=== PATIENT | female | born 1985 | race Caucasian/White ===

== ENCOUNTER → 2016-06-12 | Outpatient (REF) | payer OTHER | LOC: M SFHCCLAY 08:27 | PROVIDERS: ATTEND Family Medicine | DX: Z02.0 Encounter for examination for admission to educational institution (principal) ==

== ENCOUNTER → 2016-07-10 | Outpatient (REF) | payer OTHER ==
[2016-07-10 19:20] LABS: MEAN CORPUSCULAR HGB CONC 33.4 g/dl (32.0-36.5); MEAN CORPUSCULAR VOLUME 89.9 fl (80.0-96.0); RED CELL DISTRIBUTION WIDTH 11.9 % (11.5-14.5)
[2016-07-11 06:39] LABS: WHITE BLOOD COUNT 9.2 K/mm3 (4.0-10.0)
[2016-07-11 14:12] LABS: CONTROL LINE INT CTR LINE PRESENT; HIV SCRN NEGATIVE (NEGATIVE); HIV SCRN1 NEGATIVE (NEGATIVE)
== END | disposition home or self-care (01) ==
LOC: M LAB REF 16:59
PROVIDERS: ATTEND Obstetrics & Gynecology
DX: O36.80X0 Pregnancy with inconclusive fetal viability, not applicable or unspecified (principal); Z3A.00 Weeks of gestation of pregnancy not specified

== ENCOUNTER → 2016-07-21 | Outpatient (REF) | payer OTHER ==
[2016-07-21 15:54] LABS: FREE T4 1.02 NG/DL (0.76-1.46)
[2016-07-21 16:06] LABS: FOLATE 17.1 NG/ML (>5.4)
== END ==
LOC: M LAB REF 15:01
PROVIDERS: ATTEND Obstetrics & Gynecology
DX: O36.80X0 Pregnancy with inconclusive fetal viability, not applicable or unspecified (principal); Z3A.00 Weeks of gestation of pregnancy not specified

== ENCOUNTER → 2016-08-18 | Outpatient (REF) | payer OTHER | LOC: M LAB REF 16:17 | PROVIDERS: ATTEND Obstetrics & Gynecology | DX: Z34.81 Encounter for supervision of other normal pregnancy, first trimester (principal) ==

== ENCOUNTER → 2016-10-04 | Outpatient (CLI) | payer BC, OTHER ==
--- NOTE | 2016-10-05 04:15 | REP ---
Clinical: Anatomical evaluation. Comparison: None . Findings: Examination demonstrates a single live intrauterine in breech presentation. motion is identified by technologist. Placenta is noted anteriorly and grade one without evidence for placenta previa or abruption. Amniotic fluid volume is normal. Cervix measures 5.4 cm in length and appears closed. No evidence for nuchal cord. Gestational age by LMP 19 weeks 4 days with YELENA 02/24/2017 . Gestational age by current measurements 19 weeks 3 day with YELENA 02/25/2017 . FHR equals 147 beats per minute. BPD 4.6 cm 19 weeks 5 days HC 16.7 cm 19 weeks 2 days AC 14.8 cm 20 weeks 0 days FL 3.1 cm 19 weeks 5 days HL 2.9 cm 19 weeks 3 days HC/AC ratio 1.13 Estimated weight 315 grams ( 54th percentile). Anatomical assessment demonstrates normal structures including cranium, choroid plexus, cavum, cerebellum/posterior fossa, lungs, diaphragm, stomach, cord insertion/three-vessel cord, kidneys/bladder, spine, and extremities. Limited evaluation of the facial features and heart/ventricular outflow tracts noted. Impression: Single live intrauterine in breech presentation demonstrating appropriate interval growth. Anatomical limitations as described above warrant reevaluation and follow-up. Signed by Srinivas Avila MD 10/05/2016 04:07 A
== END ==
LOC: M RAD 10:01
PROVIDERS: ATTEND Advanced Practice Midwife
DX: Z34.82 Encounter for supervision of other normal pregnancy, second trimester (principal)

== ENCOUNTER → 2016-10-27 | Outpatient (CLI) | payer BC, OTHER ==
--- NOTE | 2016-10-27 12:34 | REP ---
REASON: Followup anatomy. Multiple sonographic images of the gravid uterus show a single living intrauterine gestation in the jeovany breech presentation. Doppler interrogation of the heart shows the heart rate of 147 beats per minute. The placenta is anterior and not low lying. The subjective amniotic fluid volume is within normal limits. The cervix measures 4 cm in length and is closed. Evaluation of the maternal adnexal spaces showed no abnormalities. BPD 5.4 cm = 22 weeks 4 days HC 20.8 cm = 22 weeks 6 days AC 18.2 cm = 23 weeks 0 days FL 3.9 cm = 22 weeks 3 days The estimated weight is 531 grams, which is at the 41st percentile for a 22-weeks 6-day gestational age. Four chamber heart and ventricular outflow tracts were seen today and appear unremarkable. The facial features were also seen to be within normal limits. Once again, however, the spine was not seen optimally. IMPRESSION: Improved anatomical screening, as described above, but with persistent limited visualization of the spine. Followup is recommended. The estimated gestational age of the fetus is 22 weeks 5 days via composite criteria with an estimated date of delivery of 02/25/2017 by today's exam. Signed by Jose G Schafer DO 10/27/2016 03:22 P
== END ==
LOC: M RAD 09:39
PROVIDERS: ATTEND Obstetrics & Gynecology
DX: Z34.82 Encounter for supervision of other normal pregnancy, second trimester (principal)

== ENCOUNTER → 2016-11-30 | Outpatient (CLI) | payer BC, OTHER ==
[~2016-11-30] MED LIST: ACET50TA PO; IBUP-1114 PO; PANT40TA2 PO; PRE-TAB3 PO
[2016-11-30 13:42] LABS: MEAN CORPUSCULAR HEMOGLOBIN 32.7 pg (27.0-33.0); MEAN CORPUSCULAR HGB CONC 34.5 g/dl (32.0-36.5); RED CELL DISTRIBUTION WIDTH 12.4 % (11.5-14.5); WHITE BLOOD COUNT 6.7 K/mm3 (4.0-10.0)
== END ==
LOC: M LAB 11:24
PROVIDERS: ATTEND Obstetrics & Gynecology
DX: Z36 Encounter for antenatal screening of mother (principal); Z3A.00 Weeks of gestation of pregnancy not specified
CPT/HCPCS: 36415; 82950; 85027; 86850; 86901; J2790

== ENCOUNTER → 2017-01-22 | Outpatient (REF) | payer BC, OTHER | LOC: M LAB REF 17:51 | PROVIDERS: ATTEND Advanced Practice Midwife | DX: Z34.83 Encounter for supervision of other normal pregnancy, third trimester (principal) ==

== ENCOUNTER 2017-03-01 06:11 | Inpatient (IN) | payer BC, OTHER ==
[~2017-03-01] VITALS: Ht 154.9 cm; Wt 67.0 kg
[2017-03-01] MEDS ORDERED: PANT40TA2 PO (06:50)
[2017-03-01] MEDS ORDERED: PRE-TAB3 PO (06:50)
[2017-03-01 07:09] LABS: BASO % 0.4 % (0.0-1.0); EOS % 0.3 % (0.0-3.0); IMMATURE GRANULOCYTE % 0.4 % (0-0); LYMPH # 1.6 10^3/uL (1.5-4.5); LYMPH % 16.1 % (24.0-44.0); MEAN CORPUSCULAR HEMOGLOBIN 32.8 pg (27.0-33.0); MEAN CORPUSCULAR HGB CONC 34.9 g/dl (32.0-36.5); MEAN CORPUSCULAR VOLUME 93.8 fl (80.0-96.0); MONO # 0.9 10^3/uL (0.0-0.8); NEUTROPHILS # 7.5 10^3/uL (1.8-7.7); NEUTROPHILS % 73.8 % (36.0-66.0); PLATELET COUNT, AUTOMATED 199 10^3/uL (150-450); RED CELL DISTRIBUTION WIDTH 12.5 % (11.5-14.5); WHITE BLOOD COUNT 10.2 10^3/uL (4.0-10.0)
[2017-03-01 07:24] VITALS: BP 119/77
[2017-03-01] MEDS ORDERED: LACTATED RINGER'S 1000 ML IV STA (07:35)
[2017-03-01] MEDS ORDERED: LR 1,000 ML IV SCH (07:35)
[2017-03-01] MEDS ORDERED: OXYTOCIN DRIP 30 UNITS in APPROPRIATE DILUENT 1 EA IV SCH ×2 (07:45→10:38)
--- NOTE | 2017-03-01 08:21 | HPEPDOC ---
Obstetrical History & Physical General Date of Admission Mar 01, 2017 at 06:11 Primary Care Physician: JAYDON CALIXTO CNM History of Present Illness Patient is a 31 year old female who is a at 40.4 weeks gestation based off of her LMP and consistent with her 1st trimeter ultrasound. She initiated care in her first trimester. Her has been uncomplicated. She has a history of gastric bypass in 2014, which has not caused any complications during this . She present to L&D for an induction of labor for post dates. She reports contractions and active movement. Denies leaking of fluid or vaginal bleeding. Chief Complaint: Induction of labor, Other Information Provided By: Patient Age: 31 : 3 Term: 2 Pre-term: 0 Abortions: 0 Livin Care Care: Good Care Dating Final EDC: Feb 25, 2017 Final EDC by: LMP EGA at Admission: 40.4 Antepartum Course Height (inches): 61 Pre- weight (lbs.): 124 Admission Weight (lbs.): 150 Change in Weight (lbs.): 26 Past Medical History Past Obstetrical History #1: Past Obstetrical History: Multigravida Gestation: 40 Type of Delivery: Spontaneous Vaginal Del. ( May 2006) Sex of : Female (weight 7 lbs 5 oz.) Complications: Yes (GHTN) Past Obstetrical History #2: Gestation: 40 Type of Delivery: Spontaneous Vaginal Del. (June 2008) Sex of : Female (weighting 8 lbs 15 oz,.) Complications: Yes ( with congenital adrenal hyperplasia) [employer] History: No pertinent history Past Medical History Medical History History of varicella, mononucleosis, pneumonia- all a child. Surgical History: Tonsilectomy, Other (gastric bypass 2014) Family History Significant Family History: Cancer, Diabetes, Heart disease, Hypertension Social History Marital Status: Family situation: Spouse/partner home Psychosocial History: No pertinent psych hx * Smoker: former Smoker Alcohol: Denies Drugs: denies Abuse Violence Screening Have you been hit/kicked/slapp: No Have you been sexually assault: No Imunizations Tdap status: declined Allergies Coded Allergies: Codeine (Verified Allergy, Unknown, HYPERVENTILATE, 03/01/17) No Known Drug Allergy (Verified Allergy, Unknown, 09/02/12) Medications Scheduled Pantoprazole Sodium (Pantoprazole Sodium) 40 Mg Tab, 40 MG PO DAILY Miscellaneous Medications (Pre-Amanda Formula) 1 Tab Tab, 1 TAB PO Physical Examination Physical Examination GENERAL: Alert and oriented times three. BREAST: . ABDOMEN: Gravid and non-tender to touch. FETUS: Is vertex (VTX) by sterile vaginal examination (SVE), fetus is vertex ( VTX) by Doug. HEART RATE: Regular rate and rhythm. LUNGS: Clear to auscultation (CTA). EXTREMITIES: No edema. No clonus. Vital Signs/I&O Vital Signs Date Time Temp Pulse Resp B/P (MAP) Pulse Ox O2 Delivery O2 Flow Rate FiO2 03/01/17 07:24 98.0 60 16 119/77 (91) Laboratory Data 24H LABS Laboratory Tests 2 03/01/17 06:23: Serology Scanned Report Hepatitis B Testing 03/01/17 06:49: Immature Granulocyte % (Auto) 0.4H, White Blood Count 10.2H, Red Blood Count 3.54L, Hemoglobin 11.6L, Hematocrit 33.2L, Mean Corpuscular Volume 93.8, Mean Corpuscular Hemoglobin 32.8, Mean Corpuscular Hemoglobin Concent 34.9, Red Cell Distribution Width 12.5, Platelet Count 199, Neutrophils (%) (Auto) 73.8H, Lymphocytes (%) (Auto) 16.1L, Monocytes (%) (Auto) 9.0H, Eosinophils (%) (Auto) 0.3, Basophils (%) (Auto) 0.4, Neutrophils # (Auto) 7.5, Lymphocytes # (Auto) 1.6, Monocytes # (Auto) 0.9H, Eosinophils # (Auto) 0.0, Basophils # (Auto) 0.0, Immature Granulocyte # (Auto) 0.0, Nucleated Red Blood Cells % (auto) 0.0 CBC/BMP Laboratory Tests 03/01/17 06:49 Red Blood Count 3.54 L, Mean Corpuscular Volume 93.8, Mean Corpuscular Hemoglobin 32.8, Mean Corpuscular Hemoglobin Concent 34.9, Red Cell Distribution Width 12.5, Neutrophils (%) (Auto) 73.8 H, Lymphocytes (%) (Auto) 16.1 L, Monocytes (%) (Auto) 9.0 H, Eosinophils (%) (Auto) 0.3, Basophils (%) ( Auto) 0.4, Neutrophils # (Auto) 7.5, Lymphocytes # (Auto) 1.6, Monocytes # (Auto ) 0.9 H, Eosinophils # (Auto) 0.0, Basophils # (Auto) 0.0 Urine Culture: No Growth Pertinent Laboratoy Data Blood Type: A- RBC Antibody Screen: Negative HIV: Negative Hepatitis B: Negative Hepatitis C: Negative Rapid Plasma Reagin: Nonreactive Rubella: Immune Chlamydia/Gonorrhea: Negative Group B Streptococcus: Negative Quad Screen Test: Declined Cystic Fibrosis: Declined Glucose Tolerance Test: 155 Vaginal Examination Dilation: 4 cm Effacement: 75% Station: -1 Cervical Consistency: Soft Cervical Position: Anterior Presentation: Cephalic presentation Position: Vertex (occiput) Assessment Heart Rate (FHR): 130 Variability: Moderate Accelerations: Positive Decelerations: Early Tocometer Contractions: Yes Frequency: regular, other (every 5 minutes) Multi-drug resistant Organism: No history of MDRO Assessment/Plan Assessment IUP at 40.4 weeks gestation Category I FHR tracing Elective induction of labor post term GBS negative Plan Admit to L&D saline lock and labs per protocol OOB ad james clear liquid diet Pitocin per order. Plan of care discussed with patient and . Reviewed risks, benefits, and alternatives with patient. Patient and agree to continue with plan of care. Anticipate cervical change and . JAYDON CALIXTO CNM Mar 01, 2017 08:21
[2017-03-01] MEDS ORDERED: FENTANYL 2MCG/ML ROPIVACAINE 0.2% IN 0.9% NACL 200ML IVBAG As Ordered ONE (09:47)
[2017-03-01] MEDS ORDERED: DIBUCAINE 1% OINTMENT 30GM TOP PRN (10:45)
[2017-03-01] MEDS ORDERED: RHOGAM 300 MCG (1500 IU) INJ (J2790) IM SCH (10:45)
[2017-03-01] MEDS ORDERED: METHYLERGONOVINE MALEATE 0.2 MG TAB PO PRN (10:45)
[2017-03-01] MEDS ORDERED: DOCUSATE SODIUM 100 MG CAP PO PRN (10:45)
[2017-03-01] MEDS ORDERED: ANUSOL HC CREAM 30GM TOP PRN (10:45)
[2017-03-01] MEDS ORDERED: MEASLES,MUMPS,RUBELLA VACCINE INJ (MMR-II) (90707) SC SCH (10:45)
[2017-03-01] MEDS ORDERED: IBUPROFEN 800 MG TAB PO PRN (10:45)
--- NOTE | 2017-03-01 10:58 | DNPDOC ---
[facility] Delivery Note Delivery Note DATE OF DELIVERY: 03/01/17 at 1013 PROCEDURE: Spontaneous vaginal delivery. UNLEAVENED DOUGH MIXER: Jaydon Banerjee CNM, RA ANESTHESIA: epidural. ESTIMATED BLOOD LOSS: 150 mL. FINDINGS: 7 pounds 10 ounces, 3460 grams, male , Score 9/9, meconium fluid and a precipitous delivery. DELIVERY SUMMARY: Patient is a 31 year-old female who is now a at 40.4 weeks gestation who presented to L&D for an induction of labor for postdates. She received Pitocin for induction and an epidural for pain management. She progressed to fully dilated 10:08 and pushed to vaginal delivery of a living male in the OA position with restitution to ALEXUS at 10:13. The shoulders delivered spontaneous and the corpus immediately followed. The baby was placed on the maternal abdomen active and crying. The cord was clamped after 1 minute times 2 and cut by provider. A 3 vessel cord was noted. The placenta delivered spontaneously and intact. Uterine hemostasis was achieved by rapid infusion of IV pitocin and fundal massage. The perineum and vagina were inspected and found to have a first degree perineal laceration that was repaired with a 3.[address]-1. Dr. Baca in room briefly after delivery to observe baby. Mom plans to breastfeed. She is naming the baby "Barry." Both mom and baby are in stable condition. JAYDON BANERJEE CNM Mar 01, 2017 10:58
[2017-03-01 13:57] VITALS: BP 125/77
[2017-03-01 18:00] VITALS: BP 136/69
[2017-03-01] MEDS: ACETAMINOPHEN 500 MG TAB PO PRN (22:37)
[2017-03-02 06:00] VITALS: BP 123/64
[2017-03-02] MEDS: ACETAMINOPHEN 500 MG TAB PO PRN (06:18)
[2017-03-02] MEDS: PRENATAL VITAMINS CHEWABLE TABLET PO SCH (07:32)
[2017-03-02 18:00] VITALS: BP 125/76
[2017-03-03 06:38] VITALS: BP 120/68
[2017-03-03] MEDS: PRENATAL VITAMINS CHEWABLE TABLET PO SCH (08:22)
[2017-03-03] MEDS ORDERED: INFLUENZA QUADRIVALENT PF VACCINE 0.5ML SYRINGE (90686) IM ONE (09:00)
[2017-03-03] MEDS ORDERED: ADACEL/BOOSTRIX VACCINE (DIPHTH/PERTUSS/ACELL/TETANUS)0.5ML SYR (90715) IM ONE (09:00)
[2017-03-03] MEDS ORDERED: IBUP-1114 PO (11:28)
[2017-03-03] MEDS ORDERED: ACET50TA PO (11:28)
== END 2017-03-03 11:40 | disposition home or self-care (01) | DRG 560 ==
LOC: M LDI 06:11 → M OBS 13:10
PROVIDERS: ADMIT Obstetrics & Gynecology; ATTEND Obstetrics & Gynecology
PROC: 10E0XZZ Delivery of Products of Conception, External Approach (ICD-10-PCS; principal; 2017-03-01)
PROC: 0HQ9XZZ Repair Perineum Skin, External Approach (ICD-10-PCS; 2017-03-01)
PROC: 3E033VJ Introduction of Other Hormone into Peripheral Vein, Percutaneous Approach (ICD-10-PCS; 2017-03-01)
DX: O48.0 Post-term pregnancy (principal); O70.0 First degree perineal laceration during delivery; Z37.0 Single live birth; Z3A.40 40 weeks gestation of pregnancy; Z88.5 Allergy status to narcotic agent

== ENCOUNTER → 2020-05-16 | Outpatient (REF) | payer OTHER ==
[~2020-05-16] MED LIST changes: -ACET50TA PO; +MAPA500T2 PO; -PANT40TA2 PO; +PANT40TA29 PO
== END ==
LOC: M WUC 10:06
PROVIDERS: ATTEND Physician Assistant
DX: R21 Rash and other nonspecific skin eruption (principal); L03.114 Cellulitis of left upper limb

== ENCOUNTER → 2021-06-27 | Outpatient (REF) | payer OTHER | LOC: M LAB REF 15:36 | PROVIDERS: ATTEND Physician Assistant | DX: M54.50 Low back pain, unspecified (principal) ==

== ENCOUNTER → 2022-04-30 | Outpatient (REF) ==
[2022-04-30 13:43] LABS: RSV AMPLIFICATION NEGATIVE (NEGATIVE)
== END ==
LOC: M LABSMTC 11:51
PROVIDERS: ATTEND Family Medicine
DX: Z20.822 Contact with and (suspected) exposure to COVID-19 (principal)

== ENCOUNTER → 2022-08-01 | Outpatient (REF) | LOC: M LABSMTC 11:52 | PROVIDERS: ATTEND Family Medicine | DX: Z11.52 Encounter for screening for COVID-19 (principal) ==

== ENCOUNTER → 2022-09-15 | Outpatient (REF) | payer OTHER | LOC: M PLALAB 15:14 | PROVIDERS: ATTEND Nurse Practitioner Family | DX: Z12.4 Encounter for screening for malignant neoplasm of cervix (principal) | CPT/HCPCS: 87624; G0123 ==

== ENCOUNTER → 2023-06-15 | Outpatient (REF) | LOC: M EMP 09:33 | PROVIDERS: ATTEND Family Medicine | DX: Z11.52 Encounter for screening for COVID-19 (principal) ==

== ENCOUNTER 2024-04-26 01:23 | Emergency (ER) | payer BC, OTHER ==
[~2024-04-26] VITALS: Ht 154.9 cm; Wt 58.6 kg
[2024-04-26 02:33] LABS: BASO % 0.4 % (0.0-1.0); EOS # 0.1 10^3/uL (0.0-0.5); EOS % 1.8 % (0.0-3.0); HEMATOCRIT 35.6 % (36.0-47.0); HEMOGLOBIN 11.8 g/dl (12.0-15.5); LYMPH # 0.9 10^3/uL (1.5-5.0); LYMPH % 16.9 % (24.0-44.0); MEAN CORPUSCULAR HEMOGLOBIN 29.2 pg (27.0-33.0); MEAN CORPUSCULAR HGB CONC 33.1 g/dl (32.0-36.5); MEAN CORPUSCULAR VOLUME 88.1 fl (80.0-96.0); MONO # 0.6 10^3/uL (0.0-0.8); MONO % 12.2 % (2.0-8.0); NEUTROPHILS # 3.5 10^3/uL (1.5-8.5); NEUTROPHILS % 68.5 % (36.0-66.0); PLATELET COUNT, AUTOMATED 300 10^3/uL (150-450); RED BLOOD COUNT 4.04 10^6/uL (4.00-5.40); WHITE BLOOD COUNT 5.1 10^3/uL (4.0-10.0)
[2024-04-26] MEDS: ONDANSETRON 4MG 2ML VIAL IV ONE (02:40)
[2024-04-26 02:57] LABS: LIPASE 29 U/L (12-53)
[2024-04-26 02:59] LABS: ALBUMIN 3.5 G/DL (3.2-5.2); ALKALINE PHOSPHATASE 119 U/L (35-104); ALT/SGPT 379 U/L (7.0-40); AST/SGOT 168 U/L (<34); BILIRUBIN,TOTAL 0.6 MG/DL (0.3-1.2); BLOOD UREA NITROGEN 13 MG/DL (9-23); CALCIUM LEVEL 9.1 MG/DL (8.5-10.1); CARBON DIOXIDE LEVEL 22 MMOL/L (20-31); CHLORIDE LEVEL 113 MMOL/L (98-107); CREATININE FOR GFR 0.63 MG/DL (0.55-1.30); GLOMERULAR FILTRATION RATE > 60.0 (>60); GLUCOSE, FASTING 99 MG/DL (60-100); SODIUM LEVEL 140 MMOL/L (136-145); TOTAL PROTEIN 6.6 G/DL (5.7-8.2)
[2024-04-26] MEDS ORDERED: ISOVUE-370 76% 100ML VIAL As Ordered ONE (03:25)
[2024-04-26 06:00] VITALS: BP 121/79; TEMP 98.2; O2SAT 98
== END 2024-04-26 06:25 | disposition home or self-care (01) ==
LOC: M ED 01:23
DX: K80.20 Calculus of gallbladder without cholecystitis without obstruction (principal); J98.11 Atelectasis; K42.9 Umbilical hernia without obstruction or gangrene; K21.9 Gastro-esophageal reflux disease without esophagitis; Z98.84 Bariatric surgery status; Z88.5 Allergy status to narcotic agent; Z79.1 Long term (current) use of non-steroidal anti-inflammatories (NSAID); Z79.899 Other long term (current) drug therapy
CPT/HCPCS: 74177; 80053; 83690; 85025; 86140; 87486; 87581; 87633; 87798; 96374; 99284; J2405; Q9967

== ENCOUNTER → 2024-05-05 | Outpatient (CLI) | payer BC | LOC: M RAD 08:56 | PROVIDERS: ATTEND Surgery | DX: R10.11 Right upper quadrant pain (principal); K82.8 Other specified diseases of gallbladder | CPT/HCPCS: 76705; 78227; A9537 ==

== ENCOUNTER → 2025-03-26 | Outpatient (CLI) | payer BC ==
[~2025-03-26] MED LIST changes: +SEMA0.257 SQ
[2025-03-26 14:44] LABS: Trichomonas vaginalis (AMP) NOT DETECTED (NEGATIVE)
[2025-03-26 15:07] LABS: GC DNA AMPLIFICATION NEGATIVE (NEGATIVE)
[2025-03-26 16:23] LABS: HIV 1&2 SCREEN NEGATIVE (NEGATIVE)
[2025-03-26 16:31] LABS: HEPATITIS C VIRUS ABY INDEX < 0.02 INDEX (<0.8)
[2025-03-29 03:08] LABS: HPV APTIMA Detected (Not Detected)
== END ==
LOC: M PLALAB 12:55
PROVIDERS: ATTEND Nurse Practitioner Family
DX: Z11.3 Encounter for screening for infections with a predominantly sexual mode of transmission (principal); Z12.4 Encounter for screening for malignant neoplasm of cervix
CPT/HCPCS: 36415; 86705; 86780; 86803; 87340; 87389; 87624; 87661; 87810; 87850; G0123

== ENCOUNTER → 2025-04-10 | Outpatient (CLI) | payer BC | LOC: M WHC 07:28 | PROVIDERS: ATTEND Nurse Practitioner Family | DX: Z13.820 Encounter for screening for osteoporosis (principal); Z30.42 Encounter for surveillance of injectable contraceptive ==

== ENCOUNTER → 2025-04-20 | Outpatient (REF) | payer BC ==
[~2025-04-20] MED LIST changes: +MULTTAB61 PO; +OXYC1TAB23 PO; +ZOLP5TAB9 PO
== END ==
LOC: M SFHCWAGY 10:39
PROVIDERS: ATTEND Specialist
DX: N87.0 Mild cervical dysplasia (principal); B97.7 Papillomavirus as the cause of diseases classified elsewhere

== ENCOUNTER 2025-04-27 11:15 | Day surgery (SDC) | payer BC ==
[~2025-04-27] VITALS: Ht 154.9 cm; Wt 54.4 kg
[~2025-04-27 11:15] MED LIST changes: -OXYC1TAB23 PO
[2025-04-27] MEDS ORDERED: LR 1,000 ML IV SCH ×2 (11:30→16:15)
[2025-04-27 11:48] LABS: PLATELET COUNT, AUTOMATED 362 10^3/uL (150-450)
[2025-04-27] MEDS ORDERED: LIDOCAINE 2% 100 MG/5 ML SDV (FOR ANES.) As Ordered ONE (13:00)
[2025-04-27] MEDS ORDERED: KETOROLAC 30 MG/ML 1 ML VIAL As Ordered ONE (13:01)
[2025-04-27] MEDS ORDERED: MIDAZOLAM INJ 2 MG/2 ML VIAL As Ordered ONE (13:02)
[2025-04-27] MEDS: ceFAZolin SOD 2 GM IV ONCE IV ONE (13:39)
[2025-04-27] MEDS ORDERED: OXYC1TAB23 PO (13:41)
[2025-04-27] MEDS: ESTROGENS VAGINAL CREAM 30 GM As Ordered ONE (14:25)
[2025-04-27 15:00] VITALS: BP 110/65; TEMP 97.9; O2SAT 99
[2025-04-27] MEDS ORDERED: PERCOCET 5MG/325MG TAB PO PRN (16:15)
== END 2025-04-27 15:25 | disposition home or self-care (01) ==
LOC: M SDC 11:15
PROVIDERS: ATTEND Specialist
DX: A63.0 Anogenital (venereal) warts (principal); Z98.84 Bariatric surgery status; Z79.899 Other long term (current) drug therapy; Z90.89 Acquired absence of other organs; Z88.5 Allergy status to narcotic agent
CPT/HCPCS: 11423; 36415; 81025; 85027; 86850; 86900; 86901; 88305; J0665; J0688; J1885; J2250